=== PATIENT | male | born 1955 | race Caucasian/White ===

== ENCOUNTER 2023-09-06 10:40 | Outpatient (OUT) | payer OTHER, SELFPAY ==
--- NOTE | 2023-09-06 | XR_ITS ---
The [address] [address] Patient Name: AMOS AGRCIA MRN: [id number] date: 1955 Sex: M Assigned Patient Location: Current Patient Location: Accession/Order Number: [id number] Exam Date: 09/06/2023 11:10 Report Date: 09/06/2023 12:24 At the request of: JEFFERY JACKSON Procedure: XR foot LT min 3V PROCEDURE: XR ankle LT min 3V, XR foot LT min 3V COMPARISON: None. HISTORY: LEFT ANKLE PAIN FINDINGS: BONES:No acute fracture or dislocation. Moderate calcaneal enthesopathic spurring at the Achilles insertion. Corticated bone fragments along the inferior medial malleolus, remote injury SOFT TISSUES:Negative. No visible soft tissue swelling. EFFUSION:None visible. OTHER: Negative. XR/XR foot LT min 3V IMPRESSION: No acute abnormality of the foot or ankle Degenerative changes Electronically authenticated by: ARCHANA STAUFFER Date: 09/06/2023 12:24
--- NOTE | 2023-09-06 | XR_ITS ---
The [address] [address] Patient Name: AMOS GARCIA MRN: [id number] date: 1955 Sex: M Assigned Patient Location: Current Patient Location: Accession/Order Number: [id number] Exam Date: 09/06/2023 11:10 Report Date: 09/06/2023 12:24 At the request of: JEFFERY JACKSON Procedure: XR ankle LT min 3V PROCEDURE: XR ankle LT min 3V, XR foot LT min 3V COMPARISON: None. HISTORY: LEFT ANKLE PAIN FINDINGS: BONES:No acute fracture or dislocation. Moderate calcaneal enthesopathic spurring at the Achilles insertion. Corticated bone fragments along the inferior medial malleolus, remote injury SOFT TISSUES:Negative. No visible soft tissue swelling. EFFUSION:None visible. OTHER: Negative. XR/XR ankle LT min 3V IMPRESSION: No acute abnormality of the foot or ankle Degenerative changes Electronically authenticated by: ARCHANA STAUFFER Date: 09/06/2023 12:24
== END 2023-09-06 10:41 | disposition home or self-care (01) ==
LOC: EC 10:41
PROVIDERS: Visit Provider Podiatrist Foot & Ankle Surgery
DX: M79.672 Pain in left foot (principal); M25.572 Pain in left ankle and joints of left foot
CPT/HCPCS: 73610; 73630